=== PATIENT | male | born 1960 | race Caucasian/White ===

== ENCOUNTER 2019-07-23 03:54 | Observation (INO) ==
[2019-07-23] MEDS ORDERED: Isovue-370 500 ML BOTTLE IVP ONE (04:14)
[2019-07-23 04:38] LABS: Basophils % 0.4 %; Eosinophils # 0.2 K/mcL (0.0-0.6); Eosinophils % 2.6 %; Hemoglobin 12.7 g/dL (12.9-16.9); Immature Granulocytes % 0.3 % (0-4); Lymphocytes # 2.1 K/mcL (0.6-4.6); Lymphocytes % 22.7 %; Mean Corpuscular HGB Conc 36.3 g/dL (31.6-35.5); Mean Corpuscular Hemoglobin 31.8 pg (28.0-33.3); Mean Corpuscular Volume 87.7 fL (83.0-100.0); Mean Platelet Volume 10.7 fL (9.4-12.4); Monocytes % 11.4 %; Neutrophils # 5.7 K/mcL (1.6-8.9); Platelet Count 254 K/mcL (140-400); Red Blood Count 3.99 M/mcL (4.19-5.50); Red Cell Distribution Width 11.7 % (11.5-14.5); Segmented Neutrophils % 62.6 %; White Blood Count 9.1 K/mcL (4.3-11.1)
[2019-07-23 04:51] LABS: Bilirubin,Urine Negative (Negative); Blood,Urine Negative (Negative); Clarity,Urine Clear (Clear); Color,Urine Yellow (Yellow); Glucose,Urine (UA) Normal (Normal); Ketones,Urine Negative (Negative); Leukocyte Esterase,Urine Negative (Negative); Nitrite,Urine Negative (Negative); Protein,Urine 30 mg/dL (Neg-Trace); Specific Gravity,Urine 1.012 (1.010-1.025); Urobilinogen,Urine Normal (Normal)
[2019-07-23 04:53] LABS: Bacteria,Urine None Seen per hpf (None-Few); Hyaline Casts,Urine None Seen per lpf (None-Few); RBC,Urine 0-3 per hpf (0-3); Squamous Epithelial Cell,Urine Few per lpf (None-Few); WBC,Urine 0-3 per hpf (0-3)
[2019-07-23 04:58] LABS: Alanine Aminotransferase 13 Units/L (7-52); Albumin 4.5 g/dL (3.5-5.7); Alkaline Phosphatase 122 Units/L (34-104); Aspartate Amino Transferase 13 Units/L (13-39); BUN/Creatinine Ratio 26 (6-26); Bilirubin,Total 0.4 mg/dL (0.3-1.0); Blood Urea Nitrogen 19 mg/dL (6-20); Calcium 9.4 mg/dL (8.6-10.3); Carbon Dioxide 25 mEq/L (23-29); Chloride 89 mEq/L (98-107); Globulin 2.3 g/dL (2.4-3.5); Glucose 184 mg/dL (70-105); Lipase 15 Units/L (11-82); Osmolality,Calculated 263 (280-300); Potassium 3.8 mEq/L (3.5-5.1); Sodium 123 mEq/L (136-145); Total Protein 6.8 g/dL (6.4-8.9); Troponin I < 0.03 ng/mL (< 0.04); eGFR For African Americans > 60 (> 60); eGFR For Non-African Americans > 60 (> 60)
[2019-07-23 06:41] LABS: Prothrombin Time 11.5 Seconds (9.4-12.1)
[2019-07-23 06:43] LABS: Activated Partial Thrombo Time 32.6 Seconds (26.0-36.0)
[2019-07-23 06:57] LABS: Troponin I < 0.03 ng/mL (< 0.04)
[2019-07-23] MEDS ORDERED: Ondansetron 4 MG/2 ML VIAL IVP PRN (07:22)
[2019-07-23] MEDS ORDERED: Naloxone 0.4 MG/ML INJ IVP PRN (07:22)
[2019-07-23] MEDS ORDERED: *HR* Dextrose 50 % in Water (Syg) 50 ML SYRINGE IVP PRN (07:30)
[2019-07-23] MEDS ORDERED: Dextrose Gel 15 GM/37.5 ML TUBE PO PRN ×2 (07:30)
[2019-07-23] MEDS ORDERED: 0.9 % Sodium Chloride 1,000 ML IVC SCH (07:30)
[2019-07-23] MEDS ORDERED: D5% in Water 1,000 ML IVC PRN (07:30)
[2019-07-23 08:39] LABS: Magnesium 1.6 mg/dL (1.6-2.6)
[2019-07-23] MEDS ORDERED: Potassium Chloride 40 MEQ, Lidocaine 1% 2 ML in 0.9 % Sodium Chloride 500 ML IVPB ONE (09:14)
[2019-07-23] MEDS: Insulin LISPRO 300 UNITS/3 ML VIAL SQ SCH ×3 (09:20→17:21)
[2019-07-23] MEDS: Aspirin 81 MG TAB.CHEW PO SCH (09:21)
[2019-07-23] MEDS: levETIRAcetam 250 MG TABLET PO SCH ×2 (14:36→17:50)
[2019-07-23] MEDS: lamoTRIgine 100 MG TABLET PO SCH ×2 (14:37→20:19)
[2019-07-23] MEDS: Psyllium 1 PACKET POWD.PACK PO SCH (15:24)
[2019-07-23] MEDS: OXcarbazepine 150 MG TABLET PO SCH ×2 (15:25→20:19)
[2019-07-23 15:31] LABS: BUN/Creatinine Ratio 21 (6-26); Blood Urea Nitrogen 13 mg/dL (6-20); Calcium 9.2 mg/dL (8.6-10.3); Carbon Dioxide 25 mEq/L (23-29); Chloride 97 mEq/L (98-107); Glucose 135 mg/dL (70-105); Osmolality,Calculated 270 (280-300); Potassium 4.4 mEq/L (3.5-5.1); Sodium 129 mEq/L (136-145); eGFR For African Americans > 60 (> 60); eGFR For Non-African Americans > 60 (> 60)
[2019-07-23 15:32] LABS: Troponin I < 0.03 ng/mL (< 0.04)
[2019-07-23] MEDS: *HR* Heparin 5,000 UNIT/ML VIAL SQ SCH (17:50)
[2019-07-23] MEDS ORDERED: OLANZapine 10 MG TAB.RAPDIS PO SCH (21:00)
[2019-07-23] MEDS ORDERED: polyethylene glycoL 3350 17 GM POWD.PACK PO SCH (21:00)
[2019-07-23] MEDS ORDERED: Insulin DETEMIR 100 UNIT/ML X5UNITS SQ SCH ×2 (21:00)
[2019-07-23 23:16] LABS: Sodium, Urine 76.3 mEq/L
[2019-07-24] MEDS: *HR* Heparin 5,000 UNIT/ML VIAL SQ SCH (06:31)
[2019-07-24] MEDS: levETIRAcetam 250 MG TABLET PO SCH (06:32)
[2019-07-24 07:01] LABS: Basophils % 0.4 %; Eosinophils # 0.2 K/mcL (0.0-0.6); Eosinophils % 2.2 %; Hematocrit 42.7 % (37.5-50.1); Immature Granulocytes % 0.4 % (0-4); Lymphocytes # 1.9 K/mcL (0.6-4.6); Lymphocytes % 18.9 %; Mean Corpuscular HGB Conc 34.4 g/dL (31.6-35.5); Mean Corpuscular Hemoglobin 30.9 pg (28.0-33.3); Mean Corpuscular Volume 89.7 fL (83.0-100.0); Mean Platelet Volume 10.3 fL (9.4-12.4); Monocytes # 0.9 K/mcL (0.0-1.3); Monocytes % 9.4 %; Neutrophils # 6.8 K/mcL (1.6-8.9); Platelet Count 300 K/mcL (140-400); Red Blood Count 4.76 M/mcL (4.19-5.50); Red Cell Distribution Width 11.9 % (11.5-14.5); Segmented Neutrophils % 68.7 %; White Blood Count 9.9 K/mcL (4.3-11.1)
[2019-07-24] MEDS ORDERED: Perflutren Lipid Microsphere 1.3 ML in 0.9 % Sodium Chloride 8.7 ML IVP ONE (07:02)
[2019-07-24 07:06] LABS: Hemoglobin 14.7 g/dL (12.9-16.9)
[2019-07-24 07:24] LABS: BUN/Creatinine Ratio 15 (6-26); Blood Urea Nitrogen 11 mg/dL (6-20); Calcium 9.8 mg/dL (8.6-10.3); Carbon Dioxide 28 mEq/L (23-29); Chloride 95 mEq/L (98-107); Glucose 133 mg/dL (70-105); Osmolality,Calculated 271 (280-300); Potassium 4.3 mEq/L (3.5-5.1); Sodium 130 mEq/L (136-145); eGFR For African Americans > 60 (> 60); eGFR For Non-African Americans > 60 (> 60)
[2019-07-24] MEDS: OXcarbazepine 150 MG TABLET PO SCH ×2 (09:33→16:03)
[2019-07-24] MEDS: lamoTRIgine 100 MG TABLET PO SCH (09:33)
[2019-07-24] MEDS: Aspirin 81 MG TAB.CHEW PO SCH (09:33)
[2019-07-24] MEDS: Psyllium 1 PACKET POWD.PACK PO SCH (09:34)
[2019-07-24] MEDS: Insulin LISPRO 300 UNITS/3 ML VIAL SQ SCH ×3 (09:34→16:06)
[2019-07-24 15:07] VITALS: BP 131/75
== END 2019-07-24 20:20 | disposition home or self-care (01) ==
LOC: 2ANU 03:54 → EMEROOARM 03:54 → SUATTDRO 06:25 → 2ANU 07:00
PROVIDERS: ADMIT Family Medicine; ATTEND Internal Medicine

== ENCOUNTER 2020-05-11 18:23 | Inpatient (IN) ==
[2020-05-11] MEDS ORDERED: Isovue-370 500 ML BOTTLE IVP ONE (19:06)
[2020-05-11 19:10] LABS: RBC,Urine 0-3 per hpf (0-3); WBC,Urine 0-3 per hpf (0-3)
[2020-05-11 19:29] LABS: Bilirubin,Urine Negative (Negative); Blood,Urine Negative (Negative); Clarity,Urine Clear (Clear); Color,Urine Light-Yellow (Yellow); Glucose,Urine (UA) >=1000 mg/dL (Normal); Ketones,Urine Negative (Negative); Leukocyte Esterase,Urine Negative (Negative); Nitrite,Urine Negative (Negative); Protein,Urine Negative (Neg-Trace); Specific Gravity,Urine 1.025 (1.010-1.025); Squamous Epithelial Cell,Urine Few per hpf (None-Few); Urobilinogen,Urine Normal (Normal)
[2020-05-11 19:43] LABS: Basophils # 0.1 K/mcL (0.0-0.2); Eosinophils # 0.6 K/mcL (0.0-0.6); Eosinophils % 8.6 %; Hematocrit 36.2 % (37.5-50.1); Hemoglobin 11.7 g/dL (12.9-16.9); Immature Granulocytes % 0.4 % (0-4); Lymphocytes # 2.6 K/mcL (0.6-4.6); Mean Corpuscular HGB Conc 32.3 g/dL (31.6-35.5); Mean Corpuscular Hemoglobin 30.1 pg (28.0-33.3); Mean Corpuscular Volume 93.1 fL (83.0-100.0); Mean Platelet Volume 12.2 fL (9.4-12.4); Monocytes # 0.7 K/mcL (0.0-1.3); Monocytes % 10.1 %; Neutrophils # 3.3 K/mcL (1.6-8.9); Platelet Count 195 K/mcL (140-400); Red Blood Count 3.89 M/mcL (4.19-5.50); Segmented Neutrophils % 44.9 %; White Blood Count 7.4 K/mcL (4.3-11.1)
[2020-05-11 20:01] LABS: BUN/Creatinine Ratio 39 (6-26); Blood Urea Nitrogen 43 mg/dL (8-23); Calcium 9.2 mg/dL (8.6-10.3); Carbon Dioxide 27 mEq/L (23-29); Chloride 102 mEq/L (98-107); Glucose 393 mg/dL (70-105); Osmolality,Calculated 311 (280-300); Potassium 4.7 mEq/L (3.5-5.1); Sodium 137 mEq/L (136-145); eGFR For African Americans > 60 (> 60); eGFR For Non-African Americans > 60 (> 60)
[2020-05-11] MEDS ORDERED: Vancomycin 1,500 MG/265 ML IV.SOLN IVPB ONE (22:44)
[2020-05-11] MEDS ORDERED: Clindamycin 600 MG/50 ML 600 MG/50 ML IV.SOLN IVPB ONE (22:45)
[2020-05-11] MEDS ORDERED: Piperacillin/Tazobactam 3.375 GM in 0.9 % Sodium Chloride Mini Bag 100 ML IVPB ONE (22:45)
[2020-05-11] MEDS ORDERED: Piperacillin/Tazobactam 3.375 GM VIAL ONE (23:19)
[2020-05-12] MEDS ORDERED: Ondansetron 4 MG/2 ML VIAL IVP PRN (02:27)
[2020-05-12] MEDS ORDERED: Naloxone 0.4 MG/ML INJ IVP PRN (02:27)
[2020-05-12] MEDS ORDERED: Dextrose Gel 15 GM/37.5 ML TUBE PO PRN ×4 (02:33→07:15)
[2020-05-12] MEDS ORDERED: D5% in Water 1,000 ML IVC PRN ×2 (02:33→07:15)
[2020-05-12] MEDS ORDERED: *HR* Dextrose 50 % in Water (Vial) 50 ML VIAL IVP PRN ×2 (02:33→07:15)
[2020-05-12 06:10] LABS: Basophils # 0.1 K/mcL (0.0-0.2); Basophils % 0.7 %; Eosinophils # 0.8 K/mcL (0.0-0.6); Eosinophils % 9.2 %; Hematocrit 36.3 % (37.5-50.1); Hemoglobin 12.3 g/dL (12.9-16.9); Immature Granulocytes % 0.4 % (0-4); Lymphocytes # 3.2 K/mcL (0.6-4.6); Lymphocytes % 37.5 %; Mean Corpuscular HGB Conc 33.9 g/dL (31.6-35.5); Mean Corpuscular Volume 91.4 fL (83.0-100.0); Mean Platelet Volume 11.8 fL (9.4-12.4); Monocytes # 0.9 K/mcL (0.0-1.3); Neutrophils # 3.6 K/mcL (1.6-8.9); Platelet Count 207 K/mcL (140-400); Red Blood Count 3.97 M/mcL (4.19-5.50); Red Cell Distribution Width 11.6 % (11.5-14.5); Segmented Neutrophils % 42.2 %; White Blood Count 8.5 K/mcL (4.3-11.1)
[2020-05-12 06:26] LABS: BUN/Creatinine Ratio 34 (6-26); Blood Urea Nitrogen 26 mg/dL (8-23); Calcium 9.2 mg/dL (8.6-10.3); Carbon Dioxide 27 mEq/L (23-29); Chloride 104 mEq/L (98-107); Glucose 179 mg/dL (70-105); Magnesium 1.5 mg/dL (1.6-2.6); Osmolality,Calculated 295 (280-300); Potassium 3.8 mEq/L (3.5-5.1); Sodium 138 mEq/L (136-145); eGFR For African Americans > 60 (> 60); eGFR For Non-African Americans > 60 (> 60)
[2020-05-12] MEDS ORDERED: Insulin LISPRO 300 UNITS/3 ML VIAL SQ SCH (07:30)
[2020-05-12] MEDS: Insulin DETEMIR 100 UNIT/ML X5UNITS SQ SCH (09:29)
[2020-05-12] MEDS: Sennosides 8.6 MG TABLET PO SCH ×2 (09:29→19:59)
[2020-05-12] MEDS ORDERED: hydrOXYzine pamoate 25 MG CAPSULE PO PRN (12:42)
[2020-05-12] MEDS: Insulin LISPRO 300 UNITS/3 ML VIAL SQ SCH ×4 (12:51→22:29)
[2020-05-12] MEDS: levETIRAcetam 250 MG TABLET PO SCH (13:00)
[2020-05-12] MEDS: Divalproex Sodium 125 MG Sprinkle Capsule (DR) PO SCH ×2 (15:09→19:59)
[2020-05-12] MEDS ORDERED: *HR* LORazepam 2 MG/ML VIAL IM PRN (15:35)
[2020-05-12] MEDS: Aspirin 81 MG TAB.CHEW PO SCH (17:02)
[2020-05-12] MEDS: amLODIPine 5 MG TABLET PO SCH (17:03)
[2020-05-12] MEDS: Famotidine 20 MG TABLET PO SCH (19:59)
[2020-05-12] MEDS: OLANZapine 10 MG TAB.RAPDIS PO SCH (20:00)
[2020-05-12] MEDS: Acetaminophen 325 MG TABLET PO PRN (20:00)
[2020-05-12] MEDS: QUEtiapine Fumarate 100 MG TABLET PO SCH (20:00)
[2020-05-13 05:54] LABS: Basophils # 0.1 K/mcL (0.0-0.2); Basophils % 0.6 %; Eosinophils # 0.5 K/mcL (0.0-0.6); Eosinophils % 4.7 %; Hematocrit 39.9 % (37.5-50.1); Hemoglobin 12.9 g/dL (12.9-16.9); Immature Granulocytes % 0.4 % (0-4); Lymphocytes # 3.3 K/mcL (0.6-4.6); Lymphocytes % 33.9 %; Mean Corpuscular HGB Conc 32.3 g/dL (31.6-35.5); Mean Corpuscular Hemoglobin 29.5 pg (28.0-33.3); Mean Corpuscular Volume 91.1 fL (83.0-100.0); Mean Platelet Volume 12.2 fL (9.4-12.4); Monocytes # 0.9 K/mcL (0.0-1.3); Monocytes % 8.9 %; Platelet Count 222 K/mcL (140-400); Red Blood Count 4.38 M/mcL (4.19-5.50); Red Cell Distribution Width 11.7 % (11.5-14.5); Segmented Neutrophils % 51.5 %; White Blood Count 9.7 K/mcL (4.3-11.1)
[2020-05-13 06:14] LABS: BUN/Creatinine Ratio 33 (6-26); Blood Urea Nitrogen 29 mg/dL (8-23); Calcium 9.4 mg/dL (8.6-10.3); Carbon Dioxide 26 mEq/L (23-29); Chloride 105 mEq/L (98-107); Glucose 250 mg/dL (70-105); Magnesium 1.7 mg/dL (1.6-2.6); Osmolality,Calculated 304 (280-300); Potassium 3.7 mEq/L (3.5-5.1); Sodium 140 mEq/L (136-145); eGFR For African Americans > 60 (> 60); eGFR For Non-African Americans > 60 (> 60)
[2020-05-13 08:32] LABS: Estimated Average Glucose 252 mg/dl; Hemoglobin A1C 10.4 %
[2020-05-13] MEDS: polyethylene glycoL 3350 17 GM POWD.PACK PO SCH (09:10)
[2020-05-13] MEDS: amLODIPine 5 MG TABLET PO SCH (09:10)
[2020-05-13] MEDS: Insulin LISPRO 300 UNITS/3 ML VIAL SQ SCH ×4 (09:11→21:44)
[2020-05-13] MEDS: Insulin DETEMIR 100 UNIT/ML X5UNITS SQ SCH (09:11)
[2020-05-13] MEDS: Aspirin 81 MG TAB.CHEW PO SCH (09:11)
[2020-05-13] MEDS: Famotidine 20 MG TABLET PO SCH ×2 (09:11→21:41)
[2020-05-13] MEDS: levETIRAcetam 250 MG TABLET PO SCH (09:11)
[2020-05-13] MEDS: Divalproex Sodium 125 MG Sprinkle Capsule (DR) PO SCH ×3 (09:11→21:41)
[2020-05-13] MEDS: Sennosides 8.6 MG TABLET PO SCH ×2 (09:11→21:41)
[2020-05-13] MEDS: OLANZapine 10 MG TAB.RAPDIS PO SCH (21:41)
[2020-05-13] MEDS: QUEtiapine Fumarate 100 MG TABLET PO SCH (21:41)
[2020-05-14] MEDS: Aspirin 81 MG TAB.CHEW PO SCH (07:56)
[2020-05-14] MEDS: Acetaminophen 325 MG TABLET PO PRN (07:56)
[2020-05-14] MEDS: amLODIPine 5 MG TABLET PO SCH (07:57)
[2020-05-14] MEDS: levETIRAcetam 250 MG TABLET PO SCH (07:57)
[2020-05-14] MEDS: Sennosides 8.6 MG TABLET PO SCH (07:57)
[2020-05-14] MEDS: Famotidine 20 MG TABLET PO SCH (07:59)
[2020-05-14] MEDS: Divalproex Sodium 125 MG Sprinkle Capsule (DR) PO SCH ×2 (07:59→14:15)
[2020-05-14] MEDS: polyethylene glycoL 3350 17 GM POWD.PACK PO SCH (08:00)
[2020-05-14] MEDS: Insulin LISPRO 300 UNITS/3 ML VIAL SQ SCH ×2 (08:01→11:30)
[2020-05-14 08:27] LABS: BUN/Creatinine Ratio 39 (6-26); Blood Urea Nitrogen 37 mg/dL (8-23); Calcium 9.6 mg/dL (8.6-10.3); Carbon Dioxide 25 mEq/L (23-29); Chloride 103 mEq/L (98-107); Glucose 260 mg/dL (70-105); Magnesium 1.7 mg/dL (1.6-2.6); Osmolality,Calculated 304 (280-300); Potassium 4.4 mEq/L (3.5-5.1); Sodium 138 mEq/L (136-145); eGFR For African Americans > 60 (> 60); eGFR For Non-African Americans > 60 (> 60)
[2020-05-14] MEDS: Insulin DETEMIR 100 UNIT/ML X5UNITS SQ SCH (09:10)
[2020-05-14 15:23] VITALS: BP 114/70
== END 2020-05-14 17:07 | DRG 729 ==
LOC: EMEROOARM 18:23 → 3ANU 18:23 → SUATTDRO 05-12 00:45 → 3ANU 05-12 02:02 → SUATTDRO 05-12 19:05
PROVIDERS: ADMIT Pharmacist; ATTEND Family Medicine

== ENCOUNTER 2020-08-28 20:17 | Observation (INO) ==
[2020-08-28 20:56] LABS: Basophils % 0.4 %; Eosinophils # 0.3 K/mcL (0.0-0.6); Eosinophils % 2.6 %; Hematocrit 35.4 % (37.5-50.1); Immature Granulocytes % 0.4 % (0-4); Lymphocytes # 2.3 K/mcL (0.6-4.6); Lymphocytes % 23.8 %; Mean Corpuscular HGB Conc 33.9 g/dL (31.6-35.5); Mean Corpuscular Hemoglobin 31.3 pg (28.0-33.3); Mean Corpuscular Volume 92.4 fL (83.0-100.0); Mean Platelet Volume 11.8 fL (9.4-12.4); Monocytes # 0.9 K/mcL (0.0-1.3); Monocytes % 9.2 %; Neutrophils # 6.2 K/mcL (1.6-8.9); Platelet Count 245 K/mcL (140-400); Red Blood Count 3.83 M/mcL (4.19-5.50); Red Cell Distribution Width 12.2 % (11.5-14.5); Segmented Neutrophils % 63.6 %; White Blood Count 9.7 K/mcL (4.3-11.1)
[2020-08-28 21:20] LABS: BUN/Creatinine Ratio 30 (6-26); Blood Urea Nitrogen 33 mg/dL (8-23); Calcium 9.1 mg/dL (8.6-10.3); Carbon Dioxide 22 mEq/L (23-29); Chloride 107 mEq/L (98-107); Glucose 156 mg/dL (70-105); Osmolality,Calculated 298 (280-300); Potassium 4.2 mEq/L (3.5-5.1); Sodium 139 mEq/L (136-145); Troponin I < 0.03 ng/mL (< 0.04); eGFR For African Americans > 60 (> 60); eGFR For Non-African Americans > 60 (> 60)
[2020-08-28] MEDS ORDERED: Isovue-370 500 ML BOTTLE IVP ONE (23:46)
[2020-08-29] MEDS ORDERED: Naloxone 0.4 MG/ML INJ IVP PRN (02:22)
[2020-08-29] MEDS ORDERED: Acetaminophen 325 MG TABLET PO PRN (02:22)
[2020-08-29] MEDS ORDERED: Ondansetron 4 MG/2 ML VIAL IVP PRN (02:22)
[2020-08-29] MEDS ORDERED: *HR* Promethazine 25 MG/ML VIAL IM PRN (02:22)
[2020-08-29] MEDS ORDERED: D5% in Water 1,000 ML IVC PRN (02:29)
[2020-08-29] MEDS ORDERED: Dextrose Gel 15 GM/37.5 ML TUBE PO PRN ×2 (02:29)
[2020-08-29] MEDS ORDERED: *HR* Dextrose 50 % in Water (Vial) 50 ML VIAL IVP PRN (02:29)
[2020-08-29] MEDS: Insulin LISPRO 300 UNITS/3 ML VIAL SUBQ SCH ×4 (05:46→21:06)
[2020-08-29] MEDS: *HR* Heparin 5,000 UNIT/ML VIAL SQ SCH ×3 (05:47→21:09)
[2020-08-29 06:03] LABS: Basophils % 0.6 %; Eosinophils # 0.3 K/mcL (0.0-0.6); Eosinophils % 4.2 %; Hematocrit 34.3 % (37.5-50.1); Hemoglobin 11.7 g/dL (12.9-16.9); Immature Granulocytes % 0.4 % (0-4); Lymphocytes # 2.7 K/mcL (0.6-4.6); Lymphocytes % 37.7 %; Mean Corpuscular HGB Conc 34.1 g/dL (31.6-35.5); Mean Corpuscular Hemoglobin 32.1 pg (28.0-33.3); Mean Platelet Volume 11.7 fL (9.4-12.4); Monocytes # 0.7 K/mcL (0.0-1.3); Monocytes % 9.5 %; Neutrophils # 3.4 K/mcL (1.6-8.9); Platelet Count 220 K/mcL (140-400); Red Blood Count 3.65 M/mcL (4.19-5.50); Red Cell Distribution Width 12.1 % (11.5-14.5); Segmented Neutrophils % 47.6 %; White Blood Count 7.2 K/mcL (4.3-11.1)
[2020-08-29 06:16] LABS: INR 1.1; Prothrombin Time 12.6 Seconds (9.4-12.1)
[2020-08-29 06:22] LABS: BUN/Creatinine Ratio 25 (6-26); Blood Urea Nitrogen 23 mg/dL (8-23); Calcium 8.9 mg/dL (8.6-10.3); Carbon Dioxide 25 mEq/L (23-29); Chloride 106 mEq/L (98-107); Chol/HDL Ratio 1.9 (0-4.9); Cholesterol 93 mg/dL (< 200); Glucose 277 mg/dL (70-105); HDL Cholesterol 48 mg/dL (40-59); LDL Cholesterol,Calculated 37 mg/dL (< 100); Magnesium 1.5 mg/dL (1.6-2.6); Osmolality,Calculated 298 (280-300); Sodium 137 mEq/L (136-145); Triglycerides 42 mg/dL (< 150); eGFR For African Americans > 60 (> 60); eGFR For Non-African Americans > 60 (> 60)
[2020-08-29 06:24] LABS: Troponin I < 0.03 ng/mL (< 0.04)
[2020-08-29] MEDS: Aspirin 81 MG TAB.CHEW PO SCH (08:57)
[2020-08-29 08:59] LABS: % Iron Saturation 35 % (20-55); Creatine Kinase 83 Units/L (30-223); Iron 85 mcg/dL (65-175); Transferrin 172 mg/dL (203-362)
[2020-08-29 09:12] LABS: Thyroid Stimulating Hormone 0.601 mcIU/mL (0.340-5.600)
[2020-08-29 09:18] LABS: Ferritin 90 ng/mL (20-250)
[2020-08-29 10:14] LABS: Folate > 22.3 ng/mL (3.0-16.0); Vitamin B12 516 pg/mL (250-1100)
[2020-08-29 11:48] LABS: Estimated Average Glucose 220 mg/dl; Hemoglobin A1C 9.3 %
[2020-08-29 12:05] LABS: Bilirubin,Urine Negative (Negative); Blood,Urine Negative (Negative); Clarity,Urine Clear (Clear); Color,Urine Light-Yellow (Yellow); Glucose,Urine (UA) 200 mg/dL (Normal); Ketones,Urine Trace mg/dL (Negative); Leukocyte Esterase,Urine Trace (Negative); Mucus,Urine Few per lpf (None-Few); Nitrite,Urine Negative (Negative); PH,Urine 5.5 pH Units (5.0-8.0); Protein,Urine Negative (Neg-Trace); RBC,Urine 0-3 per hpf (0-3); Specific Gravity,Urine > 1.030 (1.010-1.025); Squamous Epithelial Cell,Urine Few per hpf (None-Few); Urobilinogen,Urine Normal (Normal); WBC,Urine 0-3 per hpf (0-3)
[2020-08-29] MEDS ORDERED: Insulin LISPRO 300 UNITS/3 ML VIAL SUBQ SCH (21:00)
[2020-08-29] MEDS ORDERED: NON-FORMULARY MEDICATION 1 EACH EACH (Insulin Glargine,Hum.Rec.Anlog [Basaglar Kwikpen U-1 SQ SCH (21:00)
[2020-08-29] MEDS: haloperidoL 1 MG TABLET PO SCH (21:05)
[2020-08-29] MEDS: Insulin DETEMIR 100 UNIT/ML X5UNITS SUBQ SCH (21:06)
[2020-08-29] MEDS: Famotidine 20 MG TABLET PO SCH (21:08)
[2020-08-29] MEDS: risperiDONE 0.25 MG TABLET PO SCH (21:08)
[2020-08-29] MEDS: Sennosides 8.6 MG TABLET PO SCH (21:09)
[2020-08-29] MEDS: OLANZapine 10 MG TAB.RAPDIS PO SCH (21:09)
[2020-08-29] MEDS: Budesonide/Formoterol 80/4.5 1 PUFF INH IH SCH (23:46)
[2020-08-30] MEDS ORDERED: GuaiFENesin Liq 200 MG/10 ML UDC PO PRN (02:26)
[2020-08-30] MEDS: *HR* Heparin 5,000 UNIT/ML VIAL SQ SCH ×3 (05:14→20:37)
[2020-08-30] MEDS: Budesonide/Formoterol 80/4.5 1 PUFF INH IH SCH ×2 (07:46→20:13)
[2020-08-30] MEDS: risperiDONE 0.25 MG TABLET PO SCH ×2 (08:02→20:39)
[2020-08-30] MEDS: Aspirin 81 MG TAB.CHEW PO SCH (08:02)
[2020-08-30] MEDS: levETIRAcetam 250 MG TABLET PO SCH (08:02)
[2020-08-30] MEDS: Multivit/Ca/Min/Fe/FA 1 TAB TABLET PO SCH (08:02)
[2020-08-30] MEDS: haloperidoL 1 MG TABLET PO SCH ×3 (08:02→20:38)
[2020-08-30] MEDS: Famotidine 20 MG TABLET PO SCH ×2 (08:03→20:39)
[2020-08-30] MEDS: Sennosides 8.6 MG TABLET PO SCH ×2 (08:04→20:40)
[2020-08-30] MEDS: polyethylene glycoL 3350 17 GM POWD.PACK PO SCH (08:04)
[2020-08-30] MEDS: Insulin LISPRO 300 UNITS/3 ML VIAL SUBQ SCH ×7 (08:09→20:37)
[2020-08-30 09:23] LABS: Basophils # 0.1 K/mcL (0.0-0.2); Basophils % 0.6 %; Eosinophils # 0.3 K/mcL (0.0-0.6); Eosinophils % 3.9 %; Hematocrit 37.1 % (37.5-50.1); Hemoglobin 12.6 g/dL (12.9-16.9); Immature Granulocytes % 0.4 % (0-4); Lymphocytes # 2.5 K/mcL (0.6-4.6); Mean Corpuscular Hemoglobin 31.9 pg (28.0-33.3); Mean Corpuscular Volume 93.9 fL (83.0-100.0); Mean Platelet Volume 11.7 fL (9.4-12.4); Monocytes # 0.6 K/mcL (0.0-1.3); Monocytes % 7.7 %; Neutrophils # 4.4 K/mcL (1.6-8.9); Platelet Count 232 K/mcL (140-400); Red Blood Count 3.95 M/mcL (4.19-5.50); Red Cell Distribution Width 11.9 % (11.5-14.5); Segmented Neutrophils % 55.4 %; White Blood Count 7.9 K/mcL (4.3-11.1)
[2020-08-30 09:39] LABS: BUN/Creatinine Ratio 23 (6-26); Blood Urea Nitrogen 19 mg/dL (8-23); Calcium 9.3 mg/dL (8.6-10.3); Carbon Dioxide 25 mEq/L (23-29); Chloride 106 mEq/L (98-107); Glucose 174 mg/dL (70-105); Magnesium 1.9 mg/dL (1.6-2.6); Osmolality,Calculated 292 (280-300); Phosphorous 3.1 mg/dL (2.7-4.5); Potassium 4.1 mEq/L (3.5-5.1); Sodium 138 mEq/L (136-145); eGFR For African Americans > 60 (> 60); eGFR For Non-African Americans > 60 (> 60)
[2020-08-30] MEDS: Insulin DETEMIR 100 UNIT/ML X5UNITS SUBQ SCH (20:37)
[2020-08-30] MEDS: OLANZapine 10 MG TAB.RAPDIS PO SCH (20:40)
[2020-08-31] MEDS: *HR* Heparin 5,000 UNIT/ML VIAL SQ SCH ×2 (05:05→14:25)
[2020-08-31] MEDS: Multivit/Ca/Min/Fe/FA 1 TAB TABLET PO SCH (07:44)
[2020-08-31] MEDS: risperiDONE 0.25 MG TABLET PO SCH (07:45)
[2020-08-31] MEDS: haloperidoL 1 MG TABLET PO SCH ×2 (07:45→14:25)
[2020-08-31] MEDS: Sennosides 8.6 MG TABLET PO SCH (07:45)
[2020-08-31] MEDS: Aspirin 81 MG TAB.CHEW PO SCH (07:46)
[2020-08-31] MEDS: Famotidine 20 MG TABLET PO SCH (07:46)
[2020-08-31] MEDS: levETIRAcetam 250 MG TABLET PO SCH (07:46)
[2020-08-31] MEDS: polyethylene glycoL 3350 17 GM POWD.PACK PO SCH (07:47)
[2020-08-31] MEDS: Insulin LISPRO 300 UNITS/3 ML VIAL SUBQ SCH ×6 (07:52→17:11)
[2020-08-31] MEDS: Budesonide/Formoterol 80/4.5 1 PUFF INH IH SCH (08:08)
[2020-08-31 10:34] VITALS: BP 96/62
[2020-08-31 17:03] LABS: Adenovirus Not Detected (Not Detect); Bordetella Pertussis Not Detected (Not Detect); Chlamydophila pneumoniae Not Detected (Not Detect); Coronavirus 229E Not Detected (Not Detect); Coronavirus HKU1 Not Detected (Not Detect); Coronavirus NL63 Not Detected (Not Detect); Coronavirus OC43 Not Detected (Not Detect); Human Metapneumovirus Not Detected (Not Detect); Human Rhinovirus/Enterovirus Not Detected (Not Detect); Influenza A Subtype 2009 H1 Not Detected (Not Detect); Influenza B Not Detected (Not Detect); Mycoplasma pneumoniae Not Detected (Not Detect); Parainfluenza Virus 1 Not Detected (Not Detect); Parainfluenza Virus 2 Not Detected (Not Detect); Parainfluenza Virus 3 Not Detected (Not Detect); Parainfluenza Virus 4 Not Detected (Not Detect); Respiratory Syncytial Virus Not Detected (Not Detect); SARS-CoV-2 Not Detected (Not Detect)
== END 2020-08-31 18:16 ==
LOC: EMEROOARM 20:17 → 3BNU 20:17 → SUATTDRO 08-29 02:22 → 3BNU 08-29 02:55
PROVIDERS: ADMIT Internal Medicine; ATTEND Internal Medicine